=== PATIENT | female | born 1950 | race Caucasian/White ===

== ENCOUNTER 2021-06-17 15:04 | Emergency (ER) | payer MEDICARE, MEDICAID | END 2021-06-17 16:45 | LOC: NAV ERS 15:04 | DX: S00.83XA Contusion of other part of head, initial encounter (principal); G93.41 Metabolic encephalopathy; W19.XXXA Unspecified fall, initial encounter; E03.9 Hypothyroidism, unspecified; D64.9 Anemia, unspecified; Z87.820 Personal history of traumatic brain injury; Z79.899 Other long term (current) drug therapy | CPT/HCPCS: 70450 ==

== ENCOUNTER 2021-06-23 19:49 | Emergency (ER) | payer MEDICARE, MEDICAID | END 2021-06-23 22:35 | LOC: NAV ERS 19:49 | DX: S00.03XA Contusion of scalp, initial encounter (principal); D64.9 Anemia, unspecified; Z79.899 Other long term (current) drug therapy; W19.XXXA Unspecified fall, initial encounter | CPT/HCPCS: 70450; 72125 ==